=== PATIENT | female | born 2005 | race Hispanic/Latino ===

== ENCOUNTER → 2024-01-29 | Day surgery (SDC) | payer OTHER ==
[~2024-01-29] MED LIST: L-GLUTAMINE500 MG PO; L-THEANINE200 MG PO; LIDOCAINE HCL 2% LOCAL INJ 5 ML SDV VIAL INJ ONE; PROBIOTIC & AC1 EACH PO; PROPOFOL IV EMULSION 10 MG/ML 20 ML VIAL ONE; PROPOFOL IV EMULSION 10 MG/ML 50 ML VIAL IV ONE; WOMEN S PROBIOTIC PO
[2024-01-29] MEDS: LACTATED RINGER'S 1,000 ML ONE (06:45)
[2024-01-29 07:29] VITALS: TEMP 97.4
[2024-01-29 07:55] VITALS: BP 108/68; PULSE 83; RESP 19; O2SAT 100
== END | disposition home or self-care (01) ==
LOC: OR 05:51
PROVIDERS: ATTEND Internal Medicine Gastroenterology
DX: K29.60 Other gastritis without bleeding (principal); K29.50 Unspecified chronic gastritis without bleeding; B96.81 Helicobacter pylori [H. pylori] as the cause of diseases classified elsewhere; K20.90 Esophagitis, unspecified without bleeding; K21.9 Gastro-esophageal reflux disease without esophagitis; K59.04 Chronic idiopathic constipation; Z71.3 Dietary counseling and surveillance; N39.0 Urinary tract infection, site not specified; F41.9 Anxiety disorder, unspecified; Z68.29 Body mass index [BMI] 29.0-29.9, adult
CPT/HCPCS: 43239; 81025; J2001; J2470; J2704 ×2; J7121